=== PATIENT | female | born 1950 | race Two or more races ===

== ENCOUNTER 2024-05-24 20:59 | Emergency (ER) | payer OTHER ==
[~2024-05-24] VITALS: Ht 144.8 cm; Wt 72.6 kg
[2024-05-24] MEDS ORDERED: GLUMETZA500 MG (21:25)
[2024-05-24] MEDS ORDERED: AVALIDE 300-121 EACH PO (21:25)
[2024-05-24] MEDS ORDERED: ECOTRIN81 MG (21:26)
[2024-05-24] MEDS ORDERED: VERELAN PM200 MG (21:26)
[2024-05-24] MEDS ORDERED: SIMVASTATIN5 MG (21:26)
[2024-05-24 22:09] LABS: HEMATOCRIT 32.7 % (36.0-45.00); MEAN CELL VOLUME 92.1 fL (80.00-100.00); MEAN CORPUSCULAR HEMOGLOBIN 30.9 pg (27.00-32.0); MEAN CORPUSCULAR HGB CONC 33.6 g/dl (32.0-36.0); PLATELET COUNT 346 K/uL (150-450); RED BLOOD COUNT 3.55 M/uL (4.00-6.00); RED CELL DISTRIBUTION WIDTH 13.7 % (11.5-14.5)
[2024-05-24 22:34] LABS: BILIRUBIN TOTAL 0.29 mg/dL (0.3-1.2); CALCIUM 10.4 mg/dL (8.5-10.1); CREATININE SERUM 1.13 mg/dL (0.55-1.02); GFR 47.07; GLOBULINA 3.4 G/DL (2.4-3.5); POTASSIUM 4.85 mEq/L (3.5-5.1); TOTAL PROTEIN 7.4 gm/dL (6.4-8.2)
[2024-05-24 23:17] LABS: URINE APPEARANCE Clear; URINE BILIRRUBIN Negative (NEGATIVE); URINE BLOOD Negative; URINE COLOR Yellow; URINE GLUCOSE Negative (NEGATIVE); URINE KETONE Negative (NEGATIVE); URINE LEUKOCYTE Negative; URINE NITRATE Negative; URINE PROTEIN Negative (NEGATIVE); URINE UROBILINOGEN 0.2 E.U./dl
[2024-05-24 23:20] LABS: URINE BACTERIA 64.8 uL (0.0-1933); URINE EPITHELIAL CELLS 3.7 uL (0.0-38.8)
[2024-05-24 23:24] LABS: URINE RBC 0.4 uL (0.0-20.8)
[2024-05-24] MEDS ORDERED: ORPHENADRINE CITRATE 30 MG/ML AMPUL IM STA (23:33)
[2024-05-24] MEDS ORDERED: ORPHENADRINE CITRATE 30 MG/ML AMPUL ONE (23:42)
== END 2024-05-24 23:51 | disposition home or self-care (01) ==
LOC: ER 21:01
DX: M54.9 Dorsalgia, unspecified (principal); I10 Essential (primary) hypertension; E11.9 Type 2 diabetes mellitus without complications; Z79.84 Long term (current) use of oral hypoglycemic drugs